=== PATIENT | male | born 1990 | race Caucasian/White ===

== ENCOUNTER 2019-09-09 15:21 | Inpatient (IN) ==
[2019-09-09] MEDS ORDERED: ONDANSETRON 4 MG/2 ML VIAL IV PRN (17:40)
[2019-09-09] MEDS ORDERED: ACETAMINOPHEN 325 MG TABLET PO PRN (17:40)
[2019-09-09] MEDS: LACTATED RINGERS 1,000 ML IV SCH (19:11)
[2019-09-10] MEDS: LACTATED RINGERS 1,000 ML IV SCH ×2 (04:03→09:27)
[2019-09-10 06:29] LABS: Basophils % 0.2 % (0.0-0.8); Eosinophils # 0.1 10*3/uL (0.0-0.87); Eosinophils % 0.8 % (0.00-10.9); Hematocrit 42.9 VOL% (42.0-52.0); Hemoglobin 14.4 GM/DL (14.0-18.0); Immature Granulocytes % 0.4 %; Immature Granulocytes Absolute 0.05 #; Lymphocytes # 1.8 10*3/uL (1.4-4.0); Lymphocytes % 15.7 % (21.2-54.2); Mean Corpuscular HGB Conc 33.6 GM/DL (32-36); Mean Corpuscular Volume 97.7 FL (87-102); Mean Platelet Volume 10.1 FL (9.6-12.0); Monocytes % 9.2 % (1.7-12.7); Neutrophils % 73.7 % (38.7-73.9); Platelet Count 167 T/CUMM (130-400); Red Blood Count 4.39 MC/CUMM (3.8-5.5); Red Cell Distribution Width 13.9 % (9.3-17.3); White Blood Count 11.7 T/CUMM (4-12)
[2019-09-10 07:03] LABS: Calcium 8.3 MG/DL (8.5-10.1); Osmolality,Calculated 281.1 MOS/KG (273-304)
[2019-09-10 07:42] VITALS: BP 147/78
[2019-09-10] MEDS ORDERED: PANTOPRAZOLE 40 MG TABLET PO SCH (09:00)
[2019-09-10] MEDS ORDERED: INFLUENZA VIRUS VACCINE 0.5 ML SYRINGE IM ONE (10:34)
== END 2019-09-10 11:05 | disposition home or self-care (01) | DRG 563 ==
LOC: EDUNIT# → EDBD → N.ED 15:21 → N.EDINP 16:15 → N.3E 16:49
PROVIDERS: ADMIT Surgery; ATTEND Surgery